=== PATIENT | male | born 1955 | race Caucasian/White ===

== ENCOUNTER → 2020-10-06 | Outpatient (CLI) | payer MEDICARE, OTHER ==
[~2020-10-06] MED LIST: ASPIR 8181 MG PO; BRILINTA 90 MG90 MG PO; CETIRIZINE HCL10 MG PO; CHLORTHALIDONE25 MG PO; FOLBIC TABLET1 EACH PO; GLUCOPHAGE500 MG PO; IBUPROFEN400 MG PO; IMDUR ER TAB 3030 MG PO; LEVEMIR100 UNIT/1 SQ; LIPITOR TAB 2020 MG PO; MELATONIN10 M2 PO; METFORMIN HCL500 MG PO; METOPROLOL TART25 MG PO; NEURONTIN 400400 MG PO; NOVOLOG 10100 UNITS/ SQ; PLAVIX 75 MG TA75 MG PO; VALSARTAN80 MG PO; VENTOLIN HFA8 GM INH; ZANAFLEX4 MG PO; ZANTAC300 MG PO
== END ==
LOC: HEART 5 08:45
DX: I25.10 Atherosclerotic heart disease of native coronary artery without angina pectoris (principal); R06.02 Shortness of breath; Z95.5 Presence of coronary angioplasty implant and graft; R94.39 Abnormal result of other cardiovascular function study
CPT/HCPCS: 78452; A9502; J2785

== ENCOUNTER → 2020-10-27 | Outpatient (CLI) | payer MEDICARE | LOC: HEART 5 15:08 | DX: R06.02 Shortness of breath (principal); R94.2 Abnormal results of pulmonary function studies; Z87.891 Personal history of nicotine dependence | CPT/HCPCS: 94060; 94729 ==

== ENCOUNTER → 2020-11-14 | Outpatient (CLI) | payer MEDICARE ==
[2020-11-15 08:10] LABS: CREATININE, URINE 66.2 mg/dL (Not Estab.); MICROALB/CREAT RATIO <5 (0-29)
== END ==
LOC: LAB 08:09
PROVIDERS: Internal Medicine
DX: E11.8 Type 2 diabetes mellitus with unspecified complications (principal)
CPT/HCPCS: 36415; 80053; 80061; 82043; 82570; 82607; 84443